=== PATIENT | male | born 1950 | race Caucasian/White ===

== ENCOUNTER 2019-05-18 12:08 | Outpatient (CLI) | payer MEDICARE, OTHER ==
--- NOTE | 2019-05-19 10:32 | MRI Report ---
Reason: ADHESIVE CAPSULITIS OF RIGHT SHOULDER Procedure Date: 05/18/2019 Accession Number: [id number] / [id number] Procedure: MRI - Shoulder RT W/O CPT Code: FULL RESULT: EXAM: RIGHT SHOULDER MRI WITHOUT CONTRAST EXAM DATE: 05/18/2019 01:21 PM. CLINICAL HISTORY: ADHESIVE CAPSULITIS OF RIGHT SHOULDER. Right shoulder lifting injury. COMPARISON: SHOULDER 3 VIEW RT 05/09/2019 11:05 AM. TECHNIQUE: Multiplanar, multisequence T1-weighted and fluid-sensitive sequences of the shoulder without contrast. Other: None. FINDINGS: Some of the images are degraded due to patient-related motion artifact. Acromioclavicular Region: The acromion is type I. Marginal osteophytes at the distal end of the clavicle and medial aspect of the acromion. Small AC joint effusion. The coracoacromial and coracoclavicular ligaments are intact. Small amount of fluid at the subacromial subdeltoid bursa. Glenohumeral Region: No subluxation. No effusion or loose bodies. The articular cartilage is unremarkable. The joint capsule is thick and mildly edematous. The glenohumeral ligaments are intact. Bone Marrow: No fracture, marrow edema or bone lesions. Labrum: The labrum is unremarkable on this nonarthrographic study. Musculature/Rotator Cuff: There is an approximately 0.9 x 1.1 cm high-grade (slightly above 50% thickness) partial thickness articular surface tear at the posterior distal aspect of the supraspinatus tendon. Tendinosis of the remaining supraspinatus tendon and tendinosis at the infraspinatus tendon. The teres minor and subscapularis tendons are unremarkable. Grade 3 atrophy of the teres minor muscle. Biceps Tendon: Proximal long head biceps tendinosis. No tear. Other: The subcutaneous tissues are unremarkable. IMPRESSION: 1. Focal, 0.9 x 1.1 cm high-grade partial-thickness articular surface tear at the posterior distal aspect of the supraspinatus tendon. There is also supraspinatus and infraspinatus tendinosis. 2. Grade 3 atrophy of the teres minor muscle which may be due to chronic denervation process such as quadrilateral space syndrome. 3. Moderate AC joint osteoarthritis. 4. Small amount of fluid at the subacromial subdeltoid bursa. 5. Thick and mildly edematous glenohumeral joint capsule suspicious for adhesive capsulitis. 6. Proximal long head biceps tendinosis. [facility]
== END 2019-05-18 12:09 | disposition home or self-care (01) ==
LOC: DI 12:08
PROVIDERS: ATTEND Orthopaedic Surgery Sports Medicine
DX: M75.01 Adhesive capsulitis of right shoulder (principal); M75.101 Unspecified rotator cuff tear or rupture of right shoulder, not specified as traumatic; M67.813 Other specified disorders of tendon, right shoulder; M19.011 Primary osteoarthritis, right shoulder

== ENCOUNTER 2019-07-06 12:17 | Outpatient (CLI) | payer MEDICARE, OTHER ==
[2019-07-06] MEDS ORDERED: BUFFERED LIDOCAINE 10 ML SYRINGE ONE (12:34)
[2019-07-06] MEDS ORDERED: BUPIVACAINE 0.5%-EPI 1:200000 PF 10 ML VIAL ONE (12:35)
[2019-07-06] MEDS ORDERED: IOTHALAMATE MEGLUMINE 50 ML VIAL ONE (12:35)
[2019-07-06] MEDS ORDERED: BUFFERED LIDOCAINE 10 ML SYRINGE IU ONE (14:55)
[2019-07-06] MEDS ORDERED: methylPREDNISolone ACETATE 80 MG/ML VIAL IM ONE (14:55)
[2019-07-06] MEDS ORDERED: IOTHALAMATE MEGLUMINE 50 ML VIAL IVP ONE (14:55)
[2019-07-06] MEDS ORDERED: BUPIVACAINE 0.5%-EPI 1:200000 PF 10 ML VIAL IS ONE (14:55)
--- NOTE | 2019-07-11 09:15 | XRAY Report ---
Reason: ADHESIVE CAPSULITIS OF RIGHT SHOULDER Procedure Date: 07/06/2019 Accession Number: [id number] / [id number] Procedure: FL - Inj/Aspiration Major Joint CPT Code: FULL RESULT: EXAM: RIGHT SHOULDER INJECTION WITH FLUOROSCOPIC GUIDANCE EXAM DATE: 07/06/2019 01:15 PM. CLINICAL HISTORY: ADHESIVE CAPSULITIS OF RIGHT SHOULDER. Persistent pain and limited range of motion. COMPARISON: MRI SHOULDER RT W/O 05/18/2019 12:58 PM. TECHNIQUE: The risks, benefits, and alternatives of the procedure were discussed with the patient. All questions were answered. Written and verbal consent were obtained. The right glenohumeral joint was marked under fluoroscopy and prepped and draped in a sterile manner. Local anesthesia was performed with 1% lidocaine. A 22-gauge needle was then inserted into the glenohumeral joint. Needle tip placement was confirmed by the injection of 2 cc of radiopaque water-soluble contrast. 80 mg of Depo-Medrol and 8 cc of Bupivacaine 0.5% were then injected. The needle was removed without immediate complication. Other: None. Fluoroscopy Time: 0.1 minute. Number of Images: 2. FINDINGS: Bones and joints: No fracture or subluxation. Injection: Fluoroscopic images demonstrate needle placement and contrast in the right glenohumeral joint. No contrast extravasation outside of the glenohumeral joint. IMPRESSION: Successful fluoroscopically guided pain injection of the right shoulder. [facility]
== END 2019-07-06 12:18 | disposition home or self-care (01) ==
LOC: DI 12:17
PROVIDERS: ATTEND Orthopaedic Surgery Sports Medicine
DX: M75.01 Adhesive capsulitis of right shoulder (principal)
CPT/HCPCS: 20610; Q9961

== ENCOUNTER 2023-03-30 15:39 | Outpatient (CLI) | payer MEDICARE, OTHER ==
[2023-03-30 17:57] LABS: INR 1.2 (0.8-1.2); PT - PROTHROMBIN TIME 13.2 secs (9.9-12.6)
== END 2023-03-30 15:40 | disposition home or self-care (01) ==
LOC: LAB.N 15:39
PROVIDERS: ATTEND Internal Medicine
DX: I48.91 Unspecified atrial fibrillation (principal)
CPT/HCPCS: 36415; 85610

== ENCOUNTER 2023-04-07 12:15 | Outpatient (CLI) | payer MEDICARE, OTHER | END 2023-04-07 12:16 | disposition home or self-care (01) | LOC: LAB.N 12:15 | PROVIDERS: ATTEND Internal Medicine | DX: I48.91 Unspecified atrial fibrillation (principal) | CPT/HCPCS: 36416; 85610 ==

== ENCOUNTER 2023-04-09 12:22 | Outpatient (CLI) | payer MEDICARE, OTHER | END 2023-04-09 12:23 | disposition home or self-care (01) | LOC: LAB.N 12:22 | PROVIDERS: ATTEND Internal Medicine | DX: I48.91 Unspecified atrial fibrillation (principal) | CPT/HCPCS: 85610 ==

== ENCOUNTER 2023-04-16 10:39 | Outpatient (CLI) | payer MEDICARE, OTHER | END 2023-04-16 10:40 | disposition home or self-care (01) | LOC: LAB.N 10:39 | PROVIDERS: ATTEND Internal Medicine | DX: I48.91 Unspecified atrial fibrillation (principal) | CPT/HCPCS: 36416; 85610 ==

== ENCOUNTER 2023-04-23 10:32 | Outpatient (CLI) | payer MEDICARE, OTHER | END 2023-04-23 10:33 | disposition home or self-care (01) | LOC: LAB.N 10:32 | PROVIDERS: ATTEND Internal Medicine | DX: I48.91 Unspecified atrial fibrillation (principal) | CPT/HCPCS: 36416; 85610 ==

== ENCOUNTER 2023-04-30 09:24 | Outpatient (CLI) | payer MEDICARE, OTHER | END 2023-04-30 09:25 | disposition home or self-care (01) | LOC: LAB.N 09:24 | PROVIDERS: ATTEND Internal Medicine | DX: I48.91 Unspecified atrial fibrillation (principal) | CPT/HCPCS: 36416; 85610 ==

== ENCOUNTER 2023-06-01 11:30 | Outpatient (CLI) | payer MEDICARE, OTHER | END 2023-06-01 11:31 | disposition home or self-care (01) | LOC: LAB.N 11:30 | PROVIDERS: ATTEND Internal Medicine | DX: I48.91 Unspecified atrial fibrillation (principal) | CPT/HCPCS: 36416; 85610 ==

== ENCOUNTER 2023-06-11 11:32 | Outpatient (CLI) | payer MEDICARE, OTHER | END 2023-06-11 11:33 | disposition home or self-care (01) | LOC: LAB.N 11:32 | PROVIDERS: ATTEND Internal Medicine | DX: I48.91 Unspecified atrial fibrillation (principal) | CPT/HCPCS: 36416; 85610 ==

== ENCOUNTER 2023-06-19 11:16 | Outpatient (CLI) | payer MEDICARE, OTHER | END 2023-06-19 11:17 | disposition home or self-care (01) | LOC: LAB.N 11:16 | PROVIDERS: ATTEND Internal Medicine | DX: I48.91 Unspecified atrial fibrillation (principal) | CPT/HCPCS: 36416; 85610 ==

== ENCOUNTER 2023-07-29 12:21 | Outpatient (CLI) | payer MEDICARE, OTHER | END 2023-07-29 12:22 | disposition home or self-care (01) | LOC: LAB.N 12:21 | PROVIDERS: ATTEND Internal Medicine | DX: I48.91 Unspecified atrial fibrillation (principal) | CPT/HCPCS: 36416; 85610 ==

== ENCOUNTER 2023-08-07 12:08 | Outpatient (CLI) | payer MEDICARE, OTHER | END 2023-08-07 12:09 | disposition home or self-care (01) | LOC: LAB.N 12:08 | PROVIDERS: ATTEND Internal Medicine | DX: I48.91 Unspecified atrial fibrillation (principal) | CPT/HCPCS: 36416; 85610 ==

== ENCOUNTER 2024-01-05 11:09 | Outpatient (CLI) | payer MEDICARE, OTHER | END 2024-01-05 11:10 | disposition home or self-care (01) | LOC: LAB.N 11:09 | PROVIDERS: ATTEND Internal Medicine | DX: I48.91 Unspecified atrial fibrillation (principal) | CPT/HCPCS: 36416; 85610 ==

== ENCOUNTER 2024-05-17 09:44 | Outpatient (CLI) | payer MEDICARE, OTHER | END 2024-05-17 09:45 | disposition home or self-care (01) | LOC: LAB.N 09:44 | PROVIDERS: ATTEND Internal Medicine | DX: I48.91 Unspecified atrial fibrillation (principal) | CPT/HCPCS: 36416; 85610 ==